=== PATIENT | female | born 2000 | race Caucasian/White ===

== ENCOUNTER 2018-03-18 21:09 | Emergency (ER) | payer MEDICAID, OTHER ==
[~2018-03-18] VITALS: Ht 160 cm; Wt 115.0 kg
[~2018-03-18 21:09] MED LIST: NITR100C6 PO
[2018-03-18 21:35] VITALS: BP 134/85
[2018-03-18] MEDS ORDERED: TETanus/Pertussis (Acell)/Diphther VAC/PF (Tdap-Adult) 0.5ml syringe IM ONE (23:45)
[2018-03-20] MEDS ORDERED: NO HOME MEDS (13:52)
[2018-03-20] MEDS ORDERED: NORG1TAB3 PO (16:47)
== END 2018-03-19 00:16 | disposition home or self-care (01) ==
LOC: ER 21:09
DX: S91.331A Puncture wound without foreign body, right foot, initial encounter (principal); S91.311A Laceration without foreign body, right foot, initial encounter; Z88.0 Allergy status to penicillin; Z88.2 Allergy status to sulfonamides; Z79.899 Other long term (current) drug therapy; W22.8XXA Striking against or struck by other objects, initial encounter; Y93.89 Activity, other specified; Y92.89 Other specified places as the place of occurrence of the external cause; Y99.8 Other external cause status
CPT/HCPCS: 90471; 90715; 99283

== ENCOUNTER 2018-03-20 11:12 | Emergency (ER) | payer OTHER ==
[~2018-03-20] VITALS: Ht 558.9 cm; Wt 50.0 kg
[2018-03-20 12:01] LABS: BASOPHILS % (AUTO) 0.7 % (0-1); EOSINOPHILS # (AUTO) 0.2 X10'3 (0-0.9); EOSINOPHILS % (AUTO) 3.5 % (0-6); HEMATOCRIT 43.6 % (35.0-45.0); HEMOGLOBIN 14.8 g/dl (12.0-16.0); LYMPHOCYTES # (AUTO) 1.6 X10'3 (1.1-4.8); LYMPHOCYTES % (AUTO) 28.7 % (21-51); MEAN CORPUSCULAR HEMOGLOBIN 28.3 PG (27.0-31.0); MEAN CORPUSCULAR VOLUME 83.4 FL (78-98); MEAN PLATELET VOLUME 7.3 FL (7.4-10.4); MONOCYTES # (AUTO) 0.4 X10'3 (0-0.9); MONOCYTES % (AUTO) 7.3 % (2-12); NEUTROPHILS # (AUTO) 3.4 X10'3 (1.8-7.7); NEUTROPHILS % (AUTO) 59.8 % (42-75); PLATELET COUNT 321 X10'3 (140-440); RED BLOOD COUNT 5.22 X10'6 (4.20-5.60); RED CELL DISTRIBUTION WIDTH 13.3 % (11.5-14.5); WHITE BLOOD COUNT 5.7 X10'3 (4.5-11.0)
[2018-03-20 12:17] LABS: ALANINE AMINOTRANSFERASE 20 U/L (12-78); ALBUMIN 4.2 G/DL (3.4-5.0); ALBUMIN/GLOBULIN RATIO 1.1 (1.1-1.5); ALKALINE PHOSPHATASE 73 IU/L (20-180); ANION GAP 8 (8-16); ASPARTATE AMINO TRANSFERASE 19 U/L (10-37); BILIRUBIN,TOTAL 0.5 MG/DL (0.1-1.0); BLOOD UREA NITROGEN 11 MG/DL (7-18); BUN/CREATININE RATIO 12.1 (6.6-38.0); CALCIUM 9.5 MG/DL (8.5-10.1); CHLORIDE 104 MMOL/L (99-107); CREATININE 0.91 MG/DL (0.40-0.90); GLUCOSE 85 MG/DL (70-104); POTASSIUM 3.2 MMOL/L (3.5-5.1); SODIUM 141 MMOL/L (135-145); TOTAL CARBON DIOXIDE 28.9 MMOL/L (24-32); eGFR 80 ML/MIN
[2018-03-20 12:25] LABS: ETHANOL < 0.010 GM/DL (0.0-0.010)
[2018-03-20 12:59] LABS: URINE HCG NEGATIVE (NEG)
[2018-03-20 13:05] LABS: CLARITY,URINE SLIGHTLY CLOUDY (Clear); COLOR,URINE YELLOW (Yellow); GLUCOSE, URINE NEGATIVE (Neg); KETONES,URINE TRACE mg/dl (Neg); LEUKOCYTE ESTERASE ,URINE NEGATIVE (Neg); NITRITES, URINE NEGATIVE (Neg); OCCULT BLOOD,URINE TRACE-INTACT (Neg); PH,URINE 5.5 (4.8-8.0); PROTEIN,URINE TRACE mg/dl (Neg); UROBILINOGEN,URINE 0.2 E.U/dL (0.2-1.0)
[2018-03-20 13:07] LABS: URINE AMPHETAMINE SCREEN POSITIVE (Neg); URINE BARBITUATE SCREEN NEGATIVE (Neg); URINE BENZODIAZEPINES SCREEN NEGATIVE (Neg); URINE CANNABINOID SCREEN POSITIVE (Neg); URINE COCAINE SCREEN NEGATIVE (Neg); URINE METHADONE SCREEN NEGATIVE (Neg); URINE OPIATE SCREEN NEGATIVE (Neg); URINE PHENCYCLIDINE SCREEN NEGATIVE (Neg)
[2018-03-20 13:12] LABS: UA COLLECTION TYPE CLN CATCH MIDSTREAM
[2018-03-20 13:13] LABS: MUCUS STRANDS MANY /LPF (Neg); SQUAMOUS EPITHELIAL CELL,UR MANY /LPF (FEW)
[2018-03-20 13:14] LABS: WBC,URINE 0-4 /HPF (0-4)
[2018-03-20 13:15] LABS: BACTERIA,URINE FEW /HPF (Neg); RBC,URINE 0-2 /HPF (0-2)
[2018-03-20] MEDS ORDERED: NO HOME MEDS (13:52)
[2018-03-20] MEDS ORDERED: traZODone 50mg tablet PO ONE ×2 (14:13→21:00)
[2018-03-20] MEDS ORDERED: NORG1TAB3 PO (16:47)
[2018-03-20] MEDS ORDERED: clonazePAM 1mg tablet PO ONE ×2 (20:00→21:00)
[2018-03-21 17:37] VITALS: BP 124/72
== END 2018-03-21 17:30 ==
LOC: ER 11:12
DX: F29 Unspecified psychosis not due to a substance or known physiological condition (principal); J45.909 Unspecified asthma, uncomplicated; F12.90 Cannabis use, unspecified, uncomplicated; Z88.0 Allergy status to penicillin; Z88.2 Allergy status to sulfonamides; Z79.899 Other long term (current) drug therapy
CPT/HCPCS: 36415; 80053; 80305; 80320; 81001; 81025; 84443; 85025; 99285

== ENCOUNTER 2018-03-21 14:40 | Inpatient (IN) | payer OTHER ==
[~2018-03-21] VITALS: Ht 160 cm; Wt 49.9 kg
[~2018-03-21 14:40] MED LIST changes: -NITR100C6 PO; +NORG1TAB3 PO
[2018-03-21 17:30] VITALS: BP 108/75
[2018-03-21] MEDS ORDERED: mag hydrox/Alum hydrox/simeth 30ml oral suspension PO PRN (18:30)
[2018-03-21] MEDS ORDERED: magnesium hydroxide 30ml (MOM) UD suspension PO PRN (18:30)
[2018-03-21] MEDS ORDERED: acetaminophen 325mg tablet PO PRN ×2 (18:30)
[2018-03-21 19:42] VITALS: BP 124/82
[2018-03-22 07:12] LABS: CHOL/HDL RATIO 2.6 (0.00-4.99); CHOLESTEROL 157 MG/DL (0-200); HDL CHOLESTEROL 61 MG/DL (35-60); LDL CHOLESTEROL 90 MG/DL (50-100); TRIGLYCERIDES 63 MG/DL (20-135)
[2018-03-22 07:48] LABS: POTASSIUM 3.9 MMOL/L (3.5-5.1)
[2018-03-22 08:17] LABS: HEMOGLOBIN A1C 5.2 % (4.5-6.2)
[2018-03-22 08:34] VITALS: BP 120/73
[2018-03-22] MEDS: lamoTRIgine 25mg tablet PO SCH (08:46)
[2018-03-22] MEDS: NORGESTIMATE ETHINYL ESTRADIOL PO SCH (08:47)
[2018-03-22 20:00] VITALS: BP 135/76
[2018-03-23 08:28] VITALS: BP 120/74
[2018-03-23] MEDS: lamoTRIgine 25mg tablet PO SCH (08:29)
[2018-03-23] MEDS: NORGESTIMATE ETHINYL ESTRADIOL PO SCH (08:29)
[2018-03-23 19:00] VITALS: BP 117/67
[2018-03-23] MEDS: traZODone 50mg tablet PO PRN (21:08)
[2018-03-24 08:00] VITALS: BP 124/72
[2018-03-24] MEDS: lamoTRIgine 25mg tablet PO SCH (08:41)
[2018-03-24] MEDS: NORGESTIMATE ETHINYL ESTRADIOL PO SCH (08:41)
[2018-03-24] MEDS ORDERED: lurasidone 20mg tablet PO SCH (17:00)
[2018-03-24 19:00] VITALS: BP 109/79
[2018-03-24] MEDS: traZODone 50mg tablet PO PRN (20:59)
[2018-03-25 08:00] VITALS: BP 132/71
[2018-03-25] MEDS: NORGESTIMATE ETHINYL ESTRADIOL PO SCH (08:39)
[2018-03-25] MEDS ORDERED: lurasidone 20mg tablet PO ONE (09:20)
[2018-03-25] MEDS ORDERED: diphenhydrAMINE 25mg capsule PO PRN (09:35)
[2018-03-25 20:26] VITALS: BP 108/63
[2018-03-25] MEDS: traZODone 50mg tablet PO PRN ×2 (21:03→21:54)
[2018-03-26] MEDS: NORGESTIMATE ETHINYL ESTRADIOL PO SCH (07:52)
[2018-03-26 08:00] VITALS: BP 102/67
[2018-03-26] MEDS ORDERED: LURA60TA2 PO (08:56)
[2018-03-26] MEDS ORDERED: TRAZ-218 PO (08:56)
[2018-03-26] MEDS ORDERED: lurasidone 60mg tablet PO SCH (17:00)
== END 2018-03-26 18:45 | disposition home or self-care (01) | DRG 885 ==
LOC: ADULT MH 14:40
PROVIDERS: ADMIT Psychiatry & Neurology Psychiatry; ATTEND Psychiatry & Neurology Psychiatry
DX: F31.81 Bipolar II disorder (principal); F41.1 Generalized anxiety disorder; F90.9 Attention-deficit hyperactivity disorder, unspecified type; J45.909 Unspecified asthma, uncomplicated; Z81.1 Family history of alcohol abuse and dependence; Z81.8 Family history of other mental and behavioral disorders; Z87.01 Personal history of pneumonia (recurrent); Z87.440 Personal history of urinary (tract) infections
CPT/HCPCS: 36415; 80061; 83036; 84132; 87070; 99285

== ENCOUNTER 2018-07-27 22:29 | Emergency (ER) | payer OTHER ==
[~2018-07-27] VITALS: Ht 160 cm; Wt 51.0 kg
[~2018-07-27 22:29] MED LIST changes: +LURA60TA2 PO; +TRAZ-218 PO
[2018-07-27 22:36] VITALS: BP 118/73
== END 2018-07-27 23:32 | disposition home or self-care (01) ==
LOC: ER 22:30
DX: S10.83XA Contusion of other specified part of neck, initial encounter (principal); S00.01XA Abrasion of scalp, initial encounter; R51 Headache; J45.909 Unspecified asthma, uncomplicated; Z88.0 Allergy status to penicillin; Z88.2 Allergy status to sulfonamides; Z79.899 Other long term (current) drug therapy; Y04.0XXA Assault by unarmed brawl or fight, initial encounter; Y93.89 Activity, other specified; Y92.89 Other specified places as the place of occurrence of the external cause; Y99.9 Unspecified external cause status
CPT/HCPCS: 99283